=== PATIENT | male | born 1990 | race Hispanic/Latino ===

== ENCOUNTER 2022-02-26 13:53 | Emergency (ER) | payer OTHER ==
[~2022-02-26] VITALS: Ht 170.2 cm; Wt 115.7 kg
[~2022-02-26 13:53] MED LIST: CETI-89 PO
[2022-02-26 14:16] VITALS: BP 130/91
[2022-02-26] MEDS ORDERED: ACET-66 PO (15:44)
[2022-02-26] MEDS ORDERED: CYCL10TA16 PO (15:44)
[2022-02-26] MEDS ORDERED: KETOROLAC 30MG VIAL (30MG/ML) IM ONE (16:00)
[2022-02-26] MEDS ORDERED: LORAZEPAM 2 MG/ML 1 ML VIAL IM ONE (16:00)
== END 2022-02-26 16:14 | disposition home or self-care (01) ==
LOC: EDH 13:53
DX: S39.012A Strain of muscle, fascia and tendon of lower back, initial encounter (principal); Z90.49 Acquired absence of other specified parts of digestive tract; X58.XXXA Exposure to other specified factors, initial encounter; Y93.89 Activity, other specified; Y92.89 Other specified places as the place of occurrence of the external cause; Y99.8 Other external cause status
CPT/HCPCS: 99284; 96372; J2060; J1885